=== PATIENT | male | born 1945 | race Caucasian/White ===

== ENCOUNTER 2022-05-05 01:18 | Day surgery (SDC) | payer MEDICARE, SELFPAY ==
[2022-04-20 12:31] VITALS: BMI 34.0
--- NOTE | 2022-05-04 11:55 | PM.HPGS ---
History of Present Illness History of Present Illness Consent: Risks, benefits, and alternatives have been discussed and questions answered. Patient agrees to proceed with procedure. Chief complaint: positive cologuard Narrative: Alec Mcwilliams is a 77 year old male who performed a Cologuard test which was positive. He is therefore here for colon cancer screening. Review of Systems Review of Systems: All systems reviewed & are unremarkable except as noted in HPI and below PMFSH Past Medical History Medical History Bilateral primary osteoarthritis of knee Essential (primary) hypertension Gastro-esophageal reflux disease without esophagitis History of DVT (deep vein thrombosis) 1982 left leg History of gout Obesity Pure hypercholesterolemia, unspecified Surgical History Surgical History History of lumbar surgery 2013 L2-3 laminotomy History of shoulder surgery 1993 right rotator cuff Family History Family History Mother Multiple sclerosis Social History Social History Smoking packs per day: 1.5 Smoking cigarettes per day: 30.0 Years smoked: 42 Smoking pack-years: 63.00 Smoking status: Former smoker Tobacco type: cigarettes Second hand tobacco smoke exposure: No Smoking end date: 10/24/02 Alcohol intake: current Alcohol use details: 1/2 ounce of alcohol once or twice a month Substance use: never Substance use type: does not use Living arrangements: with family Gender identity (if verbalized by the patient): Male Sexual Orientation (if Verbalized by the Patient): Straight or Heterosexual Spiritual care concerns: No Agree to blood products: Yes Meds Home Medications and Allergies Home Medications Medication Instructions Recorded Confirmed Type atorvastatin 40 mg tablet 40 mg PO DAILY #90 tabs 02/03/22 04/20/22 Rx hydrochlorothiazide 25 mg tablet 25 mg PO DAILY #90 tabs 02/03/22 04/20/22 Rx omeprazole 40 mg capsule,delayed 40 mg PO DAILY #90 caps 02/03/22 04/20/22 Rx release tamsulosin 0.4 mg capsule 0.4 mg PO DAILY #90 caps 02/03/22 04/20/22 Rx aspirin 325 mg tablet,delayed 325 mg PO DAILY 02/04/22 04/20/22 History release diclofenac sodium 75 mg 75 mg PO BID #180 tabs 02/05/22 04/20/22 Rx tablet,delayed release metoprolol succinate 100 mg 100 mg PO DAILY #90 tabs 02/12/22 04/20/22 Rx tablet,extended release 24 hr sodium sul 1.479 gram-potas ch See Rx Instructions PO PER PKG DIR 04/15/22 04/20/22 Rx 0.188 gram-magnes sul 0.225 gram #24 tabs tablet (Sutab) psyllium 1 packet PO DAILY 04/20/22 04/20/22 History Allergies Allergy/AdvReac Type Severity Reaction Status Date / Time morphine AdvReac Intermediate Shakiness Verified 05/05/22 08:53 Exam Resp: Auscultation: clear to auscultation bilaterally Cardio: Rate: regular rate Rhythm: regular rhythm GI: GI Palp: Yes Soft to palpation and No Tenderness to palpation present (GI) Assessment and Plan Assessment and plan (1) Colon cancer screening: Code(s): Z12.11 - Encounter for screening for malignant neoplasm of colon Status: Acute Assessment and Plan: Colonoscopy with possible biopsy or polypectomy or cautery or injection of substances.
--- NOTE | 2022-05-04 15:56 | WPDANESEPPF ---
Anes - Initial Pre Proc Eval Procedure: Operation Date: 05/05/22 10:15 Proposed Procedures p Colonoscopy - Luther Wylie MD Date/Time: 05/04/22 15:56 Surgeon: Luther Wylie MD Pre Op Diagnosis: positive cologuard Patient Data Age: 77 Gender: M Height: 1.75 m Weight: 104.5 kg Allergies Allergy/AdvReac Type Severity Reaction Status Date / Time morphine AdvReac Intermediate Shakiness Verified 05/05/22 08:53 Home Medications Medication Instructions Recorded Confirmed Type atorvastatin 40 mg tablet 40 mg PO DAILY #90 tabs 02/03/22 04/20/22 Rx hydrochlorothiazide 25 mg tablet 25 mg PO DAILY #90 tabs 02/03/22 04/20/22 Rx omeprazole 40 mg capsule,delayed 40 mg PO DAILY #90 caps 02/03/22 04/20/22 Rx release tamsulosin 0.4 mg capsule 0.4 mg PO DAILY #90 caps 02/03/22 04/20/22 Rx aspirin 325 mg tablet,delayed 325 mg PO DAILY 02/04/22 04/20/22 History release diclofenac sodium 75 mg 75 mg PO BID #180 tabs 02/05/22 04/20/22 Rx tablet,delayed release metoprolol succinate 100 mg 100 mg PO DAILY #90 tabs 02/12/22 04/20/22 Rx tablet,extended release 24 hr sodium sul 1.479 gram-potas ch See Rx Instructions PO PER PKG DIR 04/15/22 04/20/22 Rx 0.188 gram-magnes sul 0.225 gram #24 tabs tablet (Sutab) psyllium 1 packet PO DAILY 04/20/22 04/20/22 History Patient hx anesthesia problems: none Family hx anesthesia problems: none Results Review: All pre-operative results and documents have been reviewed as part of the pre-operative evaluation. [facility] Past Medical History Medical History (Updated 05/04/22 @ 15:57 by Anton Gorman MD) Bilateral primary osteoarthritis of knee Essential (primary) hypertension Gastro-esophageal reflux disease without esophagitis History of DVT (deep vein thrombosis) 1982 left leg History of gout Obesity Pure hypercholesterolemia, unspecified Surgical History Surgical History History of lumbar surgery 2014 L2-3 laminotomy History of shoulder surgery 1993 right rotator cuff Family History Family History Mother Multiple sclerosis Social History Social History (Updated 02/05/22 @ 10:38 by Rissa Vicente MA) Smoking packs per day: 1.5 Smoking cigarettes per day: 30.0 Years smoked: 42 Smoking pack-years: 63.00 Smoking status: Former smoker Tobacco type: cigarettes Second hand tobacco smoke exposure: No Smoking end date: 10/24/02 Alcohol intake: current Alcohol use details: 1/2 ounce of alcohol once or twice a month Substance use: never Substance use type: does not use Living arrangements: with family Gender identity (if verbalized by the patient): Male Sexual Orientation (if Verbalized by the Patient): Straight or Heterosexual Spiritual care concerns: No Agree to blood products: Yes Anes - Eval Final PreProcedure Day of Procedure 05/04/22 15:56 Patient weight: obese Heart: regular rate and rhythm Lungs: clear to auscultation and normal air movement Airway: Mallampati scale class II Neurological: alert and oriented Last oral intake: >/= 8 hours ASA classification: III Emergent: no Anesthetic plan: proceed Anesthesia type and monitoring: general GIVS Results Review: All pre-operative results and documents have been reviewed as part of the pre-operative evaluation. Informed Consent: The patient's anesthetic plan and its attendant risks and benefits were discussed with the patient/family/POA. Questions were solicited and answers provided to the satisfaction of the patient/family/POA.
[2022-05-05 08:54] VITALS: BP 156/74; PULSE 62; RESP 18; TEMP 36.4; O2SAT 98; BMI 34.8
[2022-05-05] MEDS: LACTATED RINGERS 1,000 ML 150 ML IV CONT (09:06)
[2022-05-05 09:39] VITALS: BP 146/60; PULSE 54; RESP 18; O2SAT 94
[2022-05-05 09:49] VITALS: BP 114/85; PULSE 57; RESP 20; O2SAT 97
[2022-05-05 09:59] VITALS: BP 145/67; PULSE 51; RESP 16; O2SAT 96
== END 2022-05-05 10:17 | disposition home or self-care (01) ==
PROVIDERS: PCP Family Medicine Adolescent Medicine; Visit Provider Internal Medicine Gastroenterology
PROC: 0DJD8ZZ Inspection of Lower Intestinal Tract, Via Natural or Artificial Opening Endoscopic (ICD-10-PCS; CPT 45378; principal; 2022-05-05 10:15)
DX: Z12.11 Encounter for screening for malignant neoplasm of colon (principal); K57.30 Diverticulosis of large intestine without perforation or abscess without bleeding; R19.5 Other fecal abnormalities; I10 Essential (primary) hypertension; Z86.718 Personal history of other venous thrombosis and embolism; K21.9 Gastro-esophageal reflux disease without esophagitis; E78.00 Pure hypercholesterolemia, unspecified; E66.9 Obesity, unspecified; Z68.34 Body mass index [BMI] 34.0-34.9, adult; Z87.891 Personal history of nicotine dependence; Z79.82 Long term (current) use of aspirin
CPT/HCPCS: G0121; J2704; J7120

== ENCOUNTER 2023-04-04 10:03 | Outpatient (CLI) | payer MEDICARE, SELFPAY ==
--- NOTE | 2023-04-04 11:00 | NEURO_ITS ---
Impression: # Complains of numbness of left hand with obvious wasting of muscles. # Left Carpal Tunnel Syndrome of severe degree. # Mild left ulnar neuropathy across the elbow. # Needle/EMG exam not ordered. Nerve Conduction Studies Anti Sensory Summary Table Stim Site NR Peak (ms) P-T Amp (?V) Site1 Site2 Delta-P (ms) Dist (cm) Ari (m/s) Left Median Anti Sensory (2-3nd Digit) Wrist 8.4 6.4 Wrist 2-3nd Digit 8.4 14.0 17 Wrist 7.2 9.4 Wrist 2-3nd Digit 8.4 14.0 17 Left Radial Anti Sensory (Base 1st Digit) Wrist 2.3 21.7 Wrist Base 1st Digit 2.3 0.0 Left Ulnar Anti Sensory (5th Digit) Wrist 3.1 27.6 Wrist 5th Digit 3.1 14.0 45 Motor Summary Table Stim Site NR Onset (ms) O-P Amp (mV) Site1 Site2 Delta-0 (ms) Dist (cm) Ari (m/s) Left Median Motor (Abd Poll Brev) NO RESPONSE Wrist NR Elbow Wrist 26.0 Elbow NR Left Ulnar Motor (Abd Dig Minimi) Wrist 2.7 4.8 A Elbow Wrist 6.3 32.0 51 A Elbow 9.0 2.8 B Elbow Wrist 4.6 25.0 54 B Elbow 7.3 2.7 F Wave Studies NR F-Lat (ms) L-R F-Lat (ms) Left Median (Mrkrs) (Abd Poll Brev) DISPERSED RESPONSE NR Left Ulnar (Mrkrs) (Abd Dig Min) 33.29 MTDD
== END 2023-04-04 10:04 | disposition home or self-care (01) ==
PROVIDERS: PCP Family Medicine Adolescent Medicine; Visit Provider Family Medicine Adolescent Medicine
DX: R20.2 Paresthesia of skin (principal); G56.02 Carpal tunnel syndrome, left upper limb; G56.22 Lesion of ulnar nerve, left upper limb
CPT/HCPCS: 95909

== ENCOUNTER 2023-05-13 09:45 | Outpatient (CLI) | payer MEDICARE, SELFPAY ==
--- NOTE | 2023-05-13 10:00 | ECG_ITS ---
Measurements Intervals [place] Rate: 49 P: 68 CA: 168 QRS: -16 QRSD: 107 T: 13 QT: 446 QTc: 406 Interpretive Statements SINUS BRADYCARDIA POOR R WAVE PROGRESSION, ANTERIOR LEADS BASELINE ARTIFACT- I, II, III, AVR, AVL, AVF, V1-V6 ABNORMAL ECG NO PREVIOUS ECG AVAILABLE FOR COMPARISON Electronically Signed On 05-13-2023 11:04:12 CDT by Manolo Singh D.O.
== END 2023-05-13 09:46 | disposition home or self-care (01) ==
PROVIDERS: PCP Family Medicine Adolescent Medicine; Visit Provider Orthopaedic Surgery
DX: I10 Essential (primary) hypertension (principal); Z01.818 Encounter for other preprocedural examination
CPT/HCPCS: 93005

== ENCOUNTER 2023-05-16 02:50 | Day surgery (SDC) | payer MEDICARE, SELFPAY ==
--- NOTE | 2023-05-12 08:35 | PC.NURSE ---
Report to the Outpatient Waiting Room, entrance under the green pavilion located off [facility], at time _0600 on date __05/16/23 . Planned Procedure Time: _0730 . Time changes happen often and if your time is changed the preop area will call you the afternoon before. - You and your visitor will be asked to self-screen and do not enter if you have any COVID symptoms. - A mask is optional within the hospital at this time. Patients may have clear liquids (water, carbonated beverages, clear teas, apple juice) until 3 hours prior to surgery with a maximum of 20 ounces. - No food from midnight until time of surgery - Infants may have breast milk until 4 hours before surgery, infant formula 6 hours prior to surgery. - Children will be allowed to drink immediately following surgery. If applicable, please bring a bottle or sippy cup to assist with drinking. Juice, water, soda, and popsicles are readily available. For infants on formula, please bring formula the day of surgery. Pacifiers are allowed. Take the following medications with a SIP of water the morning of surgery: ____METOPROLOL DO NOT STOP ANY OF YOUR OTHER PRESCRIPTION MEDICATIONS PRIOR TO SURGERY ?EXCEPT THE FOLLOWING Medications to discontinue per physician ___ASPIRIN PER DR HERRERA. ALL VITAMINS/SUPPLEMENTS 3 DAYS PRE OP. LAST DOSE 05/12/23 Please no make-up, nail italian, hairspray, perfume, deodorant, or body powder the day of surgery. No jewelry (including any body piercings) or valuables the day of surgery, leave them at home. Please take a shower or bath the night before, or the morning of, surgery with an antibacterial soap. Wear comfortable, loose fitting clothing. Children are encouraged to wear pajamas. - Jewelry must be removed prior to entering the operating room. Rings and piercings that are not removed may be cut off. - The hospital will not accept responsibility for valuables. - Please leave all valuables, including medications, at home the day of surgery. If you are going home after surgery, a licensed recycling collections driver must drive you home. - NO public transportation without another adult if you receive anesthesia. - We recommend that an adult stay with you for 24 hours following discharge. - We also recommend that you do not drive, make important decision, drink alcoholic beverages, or take any drugs that were not prescribed by your health care provider for at least 24 hours after your discharge time. For Pediatric surgeries, we recommend two adults accompany the child home. Follow any additional instructions given to you from your surgeon. If you or anyone in your household have experienced Covid symptoms in the past week, please notify your surgeon or the nurse liaison at the phone number below for possible testing. Telephone instructions given to ___PATIENT and asked if any additional questions and then verbalized understanding. Patient advised to call surgeon office or pre surgery nurse liaison [phone] if any additional questions.
[2023-05-12 08:45] VITALS: BMI 33.7
--- NOTE | 2023-05-13 12:02 | PM.IMHP ---
H&P: HPI History of Present Illness Date/Time: 05/13/23 12:02 Chief Complaint: Left carpal tunnel syndrome. Narrative: 78-year-old male patient of Dr. Quinteros who presents today for left carpal tunnel release. He developed spontaneous onset of numbness in the left hand to 3 months ago. Initially was entire hand was numb. Some numbness improved and at this point he is having numbness in the thumb index and long finger. He is having no symptoms in the 4th or 5th finger. He has no nocturnal symptoms. He has difficulty picking items up to the numbness in the hand. Patient had an EMG study done April 04 of this year which demonstrated severe carpal tunnel syndrome mild left ulnar neuropathy. Patient feels that the numbness is severe enough that he would like to proceed with carpal tunnel release on left hand. Review of Systems Review of Systems: All systems reviewed & are unremarkable except as noted in HPI and below PMFSH Past Medical History Medical History (Updated 02/25/23 @ 10:13 by Nathaniel Mata MD) Bilateral primary osteoarthritis of knee Essential (primary) hypertension Gastro-esophageal reflux disease without esophagitis History of DVT (deep vein thrombosis) 1982 left leg History of gout Left leg DVT Obesity Peripheral neuropathy Pure hypercholesterolemia, unspecified Surgical History Surgical History (Updated 02/22/23 @ 08:03 by Zunilda Mason CMA) History of lumbar surgery 2013 L2-3 laminotomy History of shoulder surgery 1993 right rotator cuff Hx of cataract extraction Family History Family History Mother Multiple sclerosis Social History Social History Smoking packs per day: 1.5 Smoking cigarettes per day: 30.0 Years smoked: 42 Smoking pack-years: 63.00 Smoking status: Former smoker Tobacco type: cigarettes Second hand tobacco smoke exposure: No Smoking end date: 10/24/02 Alcohol intake: current Alcohol use details: 1/2 ounce of alcohol once or twice a month Substance use: never Substance use type: does not use Living arrangements: with family Occupation/Education: retired Gender identity (if verbalized by the patient): Male Sexual Orientation (if Verbalized by the Patient): Straight or Heterosexual Spiritual care concerns: No Agree to blood products: Yes Meds Home Medications and Allergies Home Medications Medication Instructions Recorded Confirmed Type aspirin 325 mg tablet,delayed 325 mg PO DAILY 02/04/22 05/12/23 History release psyllium 1 packet PO DAILY 04/20/22 05/12/23 History hydrochlorothiazide 25 mg tablet See Rx Instructions .Route 07/15/22 05/12/23 Rx .COMPLEX #90 tabs omeprazole 40 mg capsule,delayed See Rx Instructions .Route 07/15/22 05/12/23 Rx release .COMPLEX #90 caps tamsulosin 0.4 mg capsule See Rx Instructions .Route 07/15/22 05/12/23 Rx .COMPLEX #90 caps metoprolol succinate 100 mg 100 mg PO DAILY #90 tabs 12/03/22 05/12/23 Rx tablet,extended release 24 hr atorvastatin 40 mg tablet 40 mg PO DAILY #90 tabs 03/22/23 05/12/23 Rx ascorbic acid (vitamin C) 1,000 mg 1 g PO DAILY 05/12/23 05/12/23 History tablet multivitamin with minerals 1 tablet PO DAILY 05/12/23 05/12/23 History Allergies Allergy/AdvReac Type Severity Reaction Status Date / Time morphine AdvReac Intermediate Shakiness Verified 05/12/23 08:23 Exam Narrative: 78-year-old male alert pleasant. He is 5 ft 9 236 lb. He has severe atrophy of the 1st dorsal interosseous muscle. He also has atrophy of the thenar eminence including abductor pollicis brevis and flexor brevis muscles. There is no palpable contraction of the palmar abduction of the thumb. His hypothenar eminence is normal bulk. Is a constant sense of numbness and tingling in the index long and thumb finger. He has normal sensation to the ulnar bor
--- NOTE | 2023-05-13 18:33 | WPDANESEPP ---
Anes - Eval Pre Procedure Procedure: Operation Date: 05/16/23 07:30 Proposed Procedures p Left Carpal Tunnel Release - Rick Arreola MD Date/Time: 05/13/23 18:33 Pre Op Diagnosis: left carpal tunnel syndrome Patient Data Age: 78 Gender: M Height: 1.78 m Weight: 106.6 kg Allergies Allergy/AdvReac Type Severity Reaction Status Date / Time morphine AdvReac Intermediate Shakiness Verified 05/12/23 08:23 Home Medications Medication Instructions Recorded Confirmed Type aspirin 325 mg tablet,delayed 325 mg PO DAILY 02/04/22 05/12/23 History release psyllium 1 packet PO DAILY 04/20/22 05/12/23 History hydrochlorothiazide 25 mg tablet See Rx Instructions .Route 07/15/22 05/12/23 Rx .COMPLEX #90 tabs omeprazole 40 mg capsule,delayed See Rx Instructions .Route 07/15/22 05/12/23 Rx release .COMPLEX #90 caps tamsulosin 0.4 mg capsule See Rx Instructions .Route 07/15/22 05/12/23 Rx .COMPLEX #90 caps metoprolol succinate 100 mg 100 mg PO DAILY #90 tabs 12/03/22 05/12/23 Rx tablet,extended release 24 hr atorvastatin 40 mg tablet 40 mg PO DAILY #90 tabs 03/22/23 05/12/23 Rx ascorbic acid (vitamin C) 1,000 mg 1 g PO DAILY 05/12/23 05/12/23 History tablet multivitamin with minerals 1 tablet PO DAILY 05/12/23 05/12/23 History Patient hx anesthesia problems: none Family hx anesthesia problems: none Results Review: All pre-operative results and documents have been reviewed as part of the pre-operative evaluation. [facility] Past Medical History Medical History (Updated 05/13/23 @ 18:34 by Rose Mckeon CRNA) Arthritis Bilateral primary osteoarthritis of knee Essential (primary) hypertension Gastro-esophageal reflux disease without esophagitis History of DVT (deep vein thrombosis) 1983 left leg History of gout Left leg DVT Obesity Peripheral neuropathy Pure hypercholesterolemia, unspecified Surgical History Surgical History (Updated 02/22/23 @ 08:03 by Zunilda Mason [facility]) History of lumbar surgery 2013 L2-3 laminotomy History of shoulder surgery 1993 right rotator cuff Hx of cataract extraction Family History Family History Mother Multiple sclerosis Social History Social History Smoking packs per day: 1.5 Smoking cigarettes per day: 30.0 Years smoked: 42 Smoking pack-years: 63.00 Smoking status: Former smoker Tobacco type: cigarettes Second hand tobacco smoke exposure: No Smoking end date: 10/24/02 Alcohol intake: current Alcohol use details: 1/2 ounce of alcohol once or twice a month Substance use: never Substance use type: does not use Living arrangements: with family Occupation/Education: retired Gender identity (if verbalized by the patient): Male Sexual Orientation (if Verbalized by the Patient): Straight or Heterosexual Spiritual care concerns: No Agree to blood products: Yes Exam Day of Procedure 05/13/23 18:33
[2023-05-16 06:10] VITALS: BP 149/62; PULSE 57; RESP 16; TEMP 36.4; O2SAT 97
[2023-05-16] MEDS: LACTATED RINGERS 1,000 ML 30 ML IV CONT (06:10)
--- NOTE | 2023-05-16 06:49 | P.PNAN_ITS ---
Anes - Eval Final PreProcedure Day of Procedure 05/16/23 06:49 Patient weight: obese Heart: regular rate and rhythm Lungs: clear to auscultation Airway: Mallampati scale class II Neurological: alert and oriented Last oral intake: >/= 8 hours ASA classification: III Emergent: no Anesthetic plan: proceed Anesthesia type and monitoring: general GIVS and standard monitoring Results Review: All pre-operative results and documents have been reviewed as part of the pre- operative evaluation. Informed Consent: The patient's anesthetic plan and its attendant risks and benefits were discussed with the patient/family/POA. Questions were solicited and answers provided to the satisfaction of the patient/family/POA.
[2023-05-16] MEDS: ACETAMINOPHEN 500 MG TABLET 1000 MG PO (07:00)
[2023-05-16] MEDS: KETOROLAC 15 MG/ML VIAL (*BKC) IV PUSH (07:00)
--- NOTE | 2023-05-16 07:12 | WPDHPUPDATE1 ---
History and Physical Update Update Date/Time: 05/16/23 07:12 History and Physical has been reviewed, including an updated exam of the patient. There are NO changes in the patient's condition. Risks, benefits, and alternatives have been discussed and questions answered. Patient agrees to proceed with procedure.
[2023-05-16] MEDS: ceFAZolin 2 GM/D5W 50 ML 2 GM/50 ML BAG IVPB (07:18)
[2023-05-16] MEDS: LIDOCAINE HCL 1% LOCAL INJ 20 ML VIAL INFILTRATE (07:56)
--- NOTE | 2023-05-16 08:06 | P.OP_ITS ---
Procedure Note - Detailed Date of Procedure 05/16/23 Pre-op Diagnosis left carpal tunnel syndrome Post-op Diagnosis Same Procedure Performed Left carpal tunnel release Surgeon Rick Arreola MD Anesthesia MAC (Deep sedation with local anesthesia) Description of Procedure Patient was brought to the operating room and the left arm was prepped draped usual fashion. He received 2 g of Ancef preoperatively. Deep sedation was administered and local anesthesia administered with 1% plain lidocaine approximately 4 cc utilized. Limb was exsanguinated tourniquet elevated to 250 mmHg. A 1 in longitudinal incision was made at the base of the palm in line with the radial border the 4th ray. Dissection was carried down through the superficial palmar fascia the transverse carpal ligament which was longitudinally incised. Complete release was achieved distally. Proximally a subcutaneous fat was elevated off the distal volar forearm fascia and a [place] elevator passed underneath the fascia from the underlying nerve and the fascia was split for a distance of 3 cm proximal to the flexor crease of the wrist completing the decompression. The tourniquet was released. The median nerve looked unremarkable and there were no masses in the canal. Hemostasis was achieved in the wound irrigated and closed with 4-0 nylon suture in a soft bulky dressing applied the patient transferred postop recovery room in good condition. No known complications. Estimated Blood Loss 1 Condition Stable Disposition PACU
[2023-05-16 08:10] VITALS: BP 118/49; PULSE 48; RESP 16; O2SAT 96
[2023-05-16 08:35] VITALS: BP 154/52; PULSE 46; RESP 16
== END 2023-05-16 09:14 | disposition home or self-care (01) ==
PROVIDERS: PCP Family Medicine Adolescent Medicine; Visit Provider Orthopaedic Surgery
PROC: (CPT 64721; principal; 2023-05-16 07:30)
DX: G56.02 Carpal tunnel syndrome, left upper limb (principal); I10 Essential (primary) hypertension; K21.9 Gastro-esophageal reflux disease without esophagitis; E78.00 Pure hypercholesterolemia, unspecified; G62.9 Polyneuropathy, unspecified; Z86.718 Personal history of other venous thrombosis and embolism; E66.9 Obesity, unspecified; Z68.32 Body mass index [BMI] 32.0-32.9, adult; Z87.891 Personal history of nicotine dependence
CPT/HCPCS: 64721; 93005; A9270; J0690; J1885; J2405; J2704; J3010; J7120

== ENCOUNTER 2023-10-31 09:24 | Emergency (ER) | payer MEDICARE, SELFPAY ==
--- NOTE | ~2023-10-31 | CT_ITS ---
EXAMINATION: CT abdomen pelvis wo con DATE: 10/31/2023 11:04 INDICATION: Flank pain for one week TECHNIQUE: Computed tomography (CT) of the abdomen and pelvis was performed without intravenous contr ast. Automated exposure control and iterative reconstruction technique were employed. Exam dose: 104 2.88 mGy-cm total exam DLP. COMPARISON: None. FINDINGS: The lung bases are clear. Normal heart size. Trace pericardial fluid. 9 mm posterior lateral segment left hepatic cyst. The liver is otherwise unremarkable. The gallbladde r appears normal. No bile duct or pancreatic duct dilatation. No pancreatic mass lesion or calcificat ion. Normal splenic size. Normal morphology of the adrenal glands. No renal mass lesion or urinary tract calculus or hydroureteronephrosis. The urinary bladder wall shaka ears diffusely thickened which may be due to evacuation cystitis or more likely bladder outlet obstru ction due to prominent prostate enlargement. There is minimal prostate calcification. Bilateral fat-containing inguinal hernias. There is atherosclerotic calcification of the abdominal aorta, calcification of the origins of celiac and superior mesenteric and renal arteries. No abdominal aortic aneurysm. There is prominent calcifi cation of the iliac and femoral arteries. No intraperitoneal or retroperitoneal or pelvic mass lesion or adenopathy or ascites is detected. Minimal colonic diverticulosis; no CT evidence of diverticulitis. No bowel obstruction, bowel wall th ickening, pneumatosis or intraperitoneal free air is detected. Normal appendix. Small fat-containing umbilical hernia. No suspicious osteolytic or osteoblastic lesions. Diffuse idiopathic skeletal hyperostosis of the thoracic spine. Multilevel degenerative disc disease of the lumbar spine, particularly severe at L2-3 and L4-5. Degenerative changes at the apophyseal merrick nts of the lumbar spine. IMPRESSION: No urinary tract calculus or hydroureteronephrosis. Very prominent prostate enlargement with probable bladder outlet obstruction, bladder wall thickening 9 mm left hepatic cyst Minimal diverticulosis of the colon Normal appendix Bilateral fat-containing inguinal hernias, small fat-containing umbilical hernia Reviewed, dictated and finalized at [facility]. Reviewed, dictated and finalized at [facility] [employer] IMPRESSION: No urinary tract calculus or hydroureteronephrosis. Very prominent prostate enlargement with probable bladder outlet obstruction, b ladder wall thickening 9 mm left hepatic cyst Minimal diverticulosis of the colon Normal appendix Bilateral fat-containing inguinal hernias, small fat-containing umbilical herni a
[2023-10-31 10:10] VITALS: BP 168/67; PULSE 58; RESP 20; TEMP 36.1; O2SAT 99
[2023-10-31 10:40] LABS: Appearance Urine Clear (Clear); Bacteria Urine None Seen /hpf; Bilirubin Urine Negative (Negative); Blood Urine Negative (Negative); Color Urine Dark Yellow (Yellow); Glucose Urine UA Negative (Negative); Ketones Urine Trace mg/dL (Negative); Leukocyte Esterase Ur Trace LEU/UL (Negative); Nitrate Urine Negative (Negative); Non Pathogenic Casts 0-2; Protein Urine Negative (Negative); RBC Urine 0-2 /hpf (0-2); Specific Grav Ur 1.022 (1.001-1.035); Squamous Epithelial Cell Urine None seen /hpf (Few); WBC Urine 0-5 /hpf
--- NOTE | 2023-10-31 10:42 | ED.GENADULT ---
HPI - General Adult General Chief complaint: Urogenital-Male <Casie Garcia February,N - Last Filed: 10/31/23 10:46> Stated complaint: L sided abd pain x 1 week <Casie Garcia February, - Last Filed: 10/31/23 10:46> Time Seen by Provider: 10/31/23 11:15 <Casie Garcia February,N - Last Filed: 10/31/23 10:46> History of Present Illness HPI narrative: Alec Mcwilliams is a 78 y/o male who presents with complaints of left flank pain that started about 1 week ago. He states the pain isn't really getting worse but just not getting any better. He states the pain at times gets so severe he gets a cold sweat. He denies fever/chills/ no recent fall/trauma or injury / reports urine is dark in the AM but he drinks a lot of water and his urine improves. Denies abdominal pain. <Casie Garcia February, - Last Filed: 10/31/23 10:46> Related Data Home medications: Home Medications Medication Instructions Recorded Confirmed aspirin 325 mg tablet,delayed 325 mg PO DAILY 02/04/22 05/16/23 release psyllium 1 packet PO DAILY 04/20/22 05/12/23 ascorbic acid (vitamin C) 1,000 mg 1 g PO DAILY 05/12/23 05/12/23 tablet multivitamin with minerals 1 tablet PO DAILY 05/12/23 05/16/23 <Casie Garcia February, - Last Filed: 10/31/23 10:46> Allergies/adverse reactions: Allergies Allergy/AdvReac Type Severity Reaction Status Date / Time morphine AdvReac Intermediate Shakiness Verified 05/16/23 07:33 <Casie Garcia February, - Last Filed: 10/31/23 10:46> [facility] Past Medical History Medical History: Medical History (Updated 10/31/23 @ 12:30 by Gee Abarca MD) Arthritis Bilateral primary osteoarthritis of knee Essential (primary) hypertension Gastro-esophageal reflux disease without esophagitis History of DVT (deep vein thrombosis) 1983 left leg History of gout Left leg DVT Obesity Peripheral neuropathy Pure hypercholesterolemia, unspecified <Casie Garcia February,N - Last Filed: 10/31/23 10:46> Surgical History Surgical History: Surgical History (Updated 05/16/23 @ 08:11 by Rick Arreola MD) History of lumbar surgery 2014 L2-3 laminotomy History of shoulder surgery 1993 right rotator cuff Hx of cataract extraction <Casie Chaney APRN - Last Filed: 10/31/23 10:46> Family History Family History: Family History Mother Multiple sclerosis <Casie Chaney APRN - Last Filed: 10/31/23 10:46> Social History Social History: Social History Smoking packs per day: 1.5 Smoking cigarettes per day: 30.0 Years smoked: 42 Smoking pack-years: 63.00 Smoking status: Former smoker Tobacco type: cigarettes Second hand tobacco smoke exposure: No Smoking end date: 10/24/02 Alcohol intake: current Alcohol use details: 1/2 ounce of alcohol once or twice a month Substance use: never Substance use type: does not use Living arrangements: with family Occupation/Education: retired Gender identity (if verbalized by the patient): Male Sexual Orientation (if Verbalized by the Patient): Straight or Heterosexual Spiritual care concerns: No Agree to blood products: Yes <Casie Chaney APRN - Last Filed: 10/31/23 10:46> Exam Narrative: GENERAL: Well-appearing, well-nourished, and in no acute distress. HEAD: Normocephalic, atraumatic. Neck: Supple CHEST: Clear to auscultation. No respiratory distress. HEART: Regular rate and rhythm. Normal peripheral pulses. back: No reproducible midline tenderness at T/L-spine. There is discomfort over the left lumbar paraspinal musculature near the waist. No right-sided tenderness. EXTREMITIES: Normal range of motion. No edema. NEURO: No focal deficits. Alert and oriented x3. PSYCH: Normal mood and affect. <Gee Abarca MD - Last Filed: 10/31/23 12:35> Course Course Emergency Course: Exam consistent with m
[2023-10-31 10:43] LABS: Add Urine Microscopic? YES
[2023-10-31 11:33] LABS: Basophils Percent Auto 0.2 % (0.2-1.2); Eosinophils Percent Auto 0.4 % (0-4.4); Hematocrit 40.7 % (42.0-52.0); Hemoglobin 14.1 g/dL (14.0-18.0); Immature Granulocyte Absolute 0.02 K/mm3 (0.00-0.031); Immature Granulocyte Percent A 0.2 % (0-0.5); Lymphocytes Absolute Auto 1.12 K/mm3 (0.9-3.2); Lymphocytes Percent Auto 11.7 % (18.3-44.2); Mean Corpuscular HGB Conc 34.6 g/dl (32-36); Mean Corpuscular Hemoglobin 31.3 pg (26-34); Mean Corpuscular Volume 90.4 fl (80-100); Mean Platelet Volume 10.3 fl (7.4-10.4); Monocytes Absolute Auto 0.6 K/mm3 (0.1-0.6); Monocytes Percent Auto 6.5 % (2.6-8.5); Neutrophils Absolute Auto 7.8 K/mm3 (1.3-6.7); Platelet Count Result 254 k/mm3 (150-375); Red Cell Distribution Width 12.5 % (11.5-14.5); White Blood Count 9.6 K/mm3 (4.5-10.0)
[2023-10-31 11:44] LABS: Alanine Aminotransferase 37 U/L (6-50); Albumin Level 4.3 g/dL (3.5-5.1); Alkaline Phosphatase 57 U/L (38-126); Anion Gap 10 mmol/L (8-16); Aspartate Amino Transferase 33 U/L (17-59); Bilirubin,Total 2.2 mg/dL (0.2-1.3); Blood Urea Nitrogen 23 mg/dL (9-20); Calcium 8.9 mg/dL (8.4-10.2); Carbon Dioxide 27 mmol/L (22-30); Chloride 93 mmol/L (98-107); Estimated CRCL calculation 56 ml/min; Estimated Glomerular Filt Rate 59; Glucose 122 mg/dL (65-110); Potassium 4.8 mmol/L (3.4-5.0); Sodium 130 mmol/L (137-145)
== END 2023-10-31 12:53 | disposition home or self-care (01) ==
PROVIDERS: Emergency Provider Emergency Medicine; PCP Family Medicine Adolescent Medicine
DX: M54.50 Low back pain, unspecified (principal); I10 Essential (primary) hypertension; E66.9 Obesity, unspecified; Z68.33 Body mass index [BMI] 33.0-33.9, adult; E78.00 Pure hypercholesterolemia, unspecified; K21.9 Gastro-esophageal reflux disease without esophagitis; G62.9 Polyneuropathy, unspecified; M10.9 Gout, unspecified; M17.0 Bilateral primary osteoarthritis of knee; Z86.718 Personal history of other venous thrombosis and embolism; Z87.891 Personal history of nicotine dependence; Z98.49 Cataract extraction status, unspecified eye; N40.0 Benign prostatic hyperplasia without lower urinary tract symptoms; K76.89 Other specified diseases of liver; K57.90 Diverticulosis of intestine, part unspecified, without perforation or abscess without bleeding; K40.20 Bilateral inguinal hernia, without obstruction or gangrene, not specified as recurrent; K42.9 Umbilical hernia without obstruction or gangrene
CPT/HCPCS: 36415; 74176; 80053; 81001; 85025; 99284